=== PATIENT | female | born 1995 | race Caucasian/White ===

== ENCOUNTER 2019-08-03 20:44 | Emergency (ER) | payer SELFPAY, OTHER ==
[2019-08-04] MEDS: KETOROLAC 30 MG INJ IM (01:17)
== END 2019-08-04 02:53 | disposition home or self-care (01) ==
LOC: FTE 20:44
DX: S63.501A Unspecified sprain of right wrist, initial encounter (principal); V49.59XA Passenger injured in collision with other motor vehicles in traffic accident, initial encounter
CPT/HCPCS: 29125; 73130-RT; 81025; 96372; 99284-25